=== PATIENT | male | born 1980 | race Caucasian/White ===

== ENCOUNTER 2025-06-26 04:18 | Emergency (ER) | payer OTHER ==
[~2025-06-26] VITALS: Ht 185.4 cm; Wt 109.1 kg
[2025-06-26 04:20] VITALS: BP 121/80; PULSE 70; RESP 18; TEMP 98.3; O2SAT 97
[2025-06-26] MEDS: VANCOMYCIN 1GM/WATER(PEG/NADA) 200 ML IV ONE (05:31)
[2025-06-26] MEDS: PIPERACILLIN/TAZO 3.375 GM/D5W 50 ML IV ONE (05:40)
[2025-06-26 05:42] LABS: PLATELET COUNT (AUTO) 263 K/uL (150-450); RED BLOOD CELL COUNT(AUTO) 4.47 MIL/uL (4.50-5.90); RED CELL DISTRIBUTION WIDTH 12.2 % (11.5-14.5); WHITE BLOOD COUNT (AUTO) 9.3 K/uL (4.5-11.0)
[2025-06-26] MEDS ORDERED: CEPH-558 PO ×2 (05:55→07:39)
[2025-06-26] MEDS ORDERED: CLIN300C58 PO ×2 (05:55→07:39)
[2025-06-26 05:57] LABS: CALCIUM, TOTAL 8.6 mg/dL (8.8-10.5); CREATININE 0.92 mg/dL (0.60-1.30); GLOMERULAR FILTR. RATE CALC > 60 mL/min (>60); GLUCOSE,RANDOM 115 mg/dL (70-110); SODIUM SERUM 140 mmol/L (136-145); UREA NITROGEN, BLOOD 14 mg/dL (7-18)
[2025-06-26 06:06] LABS: LACTIC ACID 1.0 mmol/L (0.4-2.0)
== END 2025-06-26 07:48 | disposition home or self-care (01) ==
LOC: EMS 04:20
DX: L03.213 Periorbital cellulitis (principal); H02.841 Edema of right upper eyelid
CPT/HCPCS: 99284; 96365; 96366; 80048; 83605; 85025; 87040; 36415; 96368; J2543; J3490